=== PATIENT | female | born 1960 | race Caucasian/White ===

== ENCOUNTER 2024-12-13 13:05 | Inpatient (IN) ==
[2024-12-13 14:16] LABS: Hematocrit (blood only) 33.3 % (37.0-47.0); Hemoglobin 10.5 g/dl (12.0-16.0); Immature Granulocytes # (auto) 0.08 K/uL (0.01-0.20); Immature Granulocytes % (auto) 0.4 %; Mean Corpuscular Hemoglobin 25.8 pg (25.0-34.0); Mean Corpuscular Volume 81.8 fL (80.0-100.0); Platelet Count 658 K/uL (130-400); RDW Standard Deviation 44.5 fL (36.4-46.3); Red Blood Count 4.07 M/uL (4.20-5.40); White Blood Count 21.24 K/ul (4.8-10.8)
--- NOTE | 2024-12-13 14:29 | XRay Report ---
XR chest 1V portable CLINICAL HISTORY: Sepsis COMPARISON STUDY: None FINDINGS: There is complete opacification of the left hemithorax with shift of the heart and mediasti num to the left. There is mild compensatory hyper inflation of the right lung. There is a small area of faint patchy opacity lateral right mid lung. No other consolidation or pleural effusion. No pneumo thorax. IMPRESSION: 1. Findings suggestive of prior left pneumonectomy. If the patient does not have history of prior lef t pneumonectomy, follow-up chest CT would be suggested. 2. Possible early pneumonia right midlung. ACT 112: Negative or not required by law. Electronically signed by: Cedric Conway M.D. 12/13/2024 2:28 PM
[2024-12-13] MEDS: SODIUM CHLORIDE 0.9% 1,000 ML IV SCH (14:34)
[2024-12-13 14:51] LABS: Alanine Aminotransferase 13 U/L (7-52); Albumin Level 3.4 gm/dl (3.4-5.0); Alkaline Phosphatase 83 U/L (34-104); Anion Gap 10 (3-11); Bilirubin,Total 0.6 mg/dl (0.2-1.0); Blood Urea Nitrogen 15 mg/dl (6-23); Calcium 14.1 mg/dl (8.6-10.3); Carbon Dioxide 41 mmol/L (21-32); Chloride 81 mmol/L (98-107); Glucose 160 mg/dl (70-99(Fasting)); Magnesium 1.7 mg/dl (1.7-2.4); Potassium 2.1 mmol/L (3.5-5.1); Sodium 132 mmol/L (136-145); Total Protein 8.3 gm/dl (6.0-8.3)
--- NOTE | 2024-12-13 15:53 | CT Scan Report ---
CT SCAN OF THE CHEST WITHOUT IV CONTRAST CLINICAL HISTORY: Sepsis. COMPARISON STUDY: Chest x-ray dated 12/13/2024. TECHNIQUE: CT scan of the thorax was performed from the thoracic inlet to the upper abdomen. Images are reviewed in the axial, sagittal, and coronal planes. IV contrast was not administered for this ex amination as per the referring clinician. A dose lowering technique was utilized adhering to the radha tremaineples of JEREMY. CT DOSE: 653.07 mGy.cm FINDINGS: Thyroid: Imaged portions of the thyroid gland are normal in size and attenuation. Thoracic aorta: The thoracic aorta is normal in caliber and demonstrates standard 3-vessel arch anato my. Heart: The heart is normal in size and without pericardial effusion. Lungs and pleural spaces: Moderate to advanced emphysematous change is noted in the right lung. There is complete atelectasis of the left lung with compensatory hyperinflation of the right lung and left perera shift of the mediastinum. There is a [id number] amount of pleural fluid on the left. No p leural fluid is seen in the right. There is right basilar scarring/atelectasis. The trachea is clear. Debris fills the left mainstem bronchus and the left-sided bronchi which are completely opacified. T he right mainstem bronchus is clear. There are scattered calcified granulomas. Mediastinum: A mildly enlarged prevascular lymph node measures 10 mm in short axis. No additional enl arged mediastinal lymph nodes are clearly seen. Naya: Not well assessed without IV contrast. Axillae: There is no axillary lymphadenopathy. Upper abdomen: Partially visualized upper abdominal viscera is within normal limits. Skeletal structures: The skeletal structures are osteopenic. No lytic or blastic bony lesions are see n. IMPRESSION: 1. Emphysema. 2. There is complete atelectasis of the left lung with compensatory hyperinflation of the right lung and leftward shift of the mediastinum. 3. Tumor or pneumonia within the collapsed left lung would be impossible to exclude. Pulmonology eval uation is advised. 4 Debris/material occludes the left mainstem bronchus and the left-sided airways. This could be relat ed to aspiration. Again, an underlying mass lesion is not excluded. 5. There is a small to moderate amount of pleural fluid on the left. 6. There is a mildly enlarged prevascular lymph node. No additional enlarged mediastinal lymph nodes are clearly seen. 7. The right lung appears clear. 8. Additional findings as above. ACT 112: Negative or not required by law. Electronically signed by: Krishan Temple M.D. 12/13/2024 3:52 PM
--- NOTE | 2024-12-13 16:00 | CT Scan Report ---
ABDOMEN AND PELVIS CT WITHOUT CONTRAST HISTORY: Acute onset abdominal pain with weight loss Cancer, weight loss TECHNIQUE: Multiaxial CT images of the abdomen and pelvis were performed without contrast. A dose lo wering technique was utilized adhering to the principles of ALARA. COMPARISON STUDY: Chest CT of same day FINDINGS: Chest CT dictated separately. Small left pleural effusion. Partially imaged collapse/consol idation of the left lower lobe with left hemithorax volume loss. Emphysema with right basilar subpleu ral fibrosis. No pneumatosis or pneumoperitoneum. The unenhanced spleen, mildly atrophic pancreas and right adrenal gland are unremarkable. Nodular thickening of the left adrenal gland may represent hyp erplasia versus underlying indeterminate adrenal lesion. Unremarkable gallbladder. Liver is within no rmal limits. 4 mm nonobstructing calculus of the interpolar right kidney. Punctate nonobstructing calculus of the inferior pole left kidney. 5 mm calculus within the proximal left ureter just distal to the ureterope lvic junction is noted without significant obstructive uropathy. Urinary bladder wall thickening with partial distention. Unremarkable uterus and adnexa. Atherosclerosis of the aorta without aneurysm. N o lymphadenopathy. No bowel obstruction or bowel wall thickening identified. Colonic diverticulosis without acute divert iculitis. No CT evidence of acute appendicitis. Unremarkable soft tissues. ORIF changes of the left h emipelvis. No destructive bone lesion. IMPRESSION: 1. 5 mm proximal left ureteral calculus is present without significant obstructive uropathy. 2. Nonobstructing bilateral nephrolithiasis. 3. No bowel obstruction or bowel wall thickening. 4. Colonic diverticulosis. 5. Please refer to the same day chest CT for discussion of the intrathoracic findings. ACT 112: Negative or not required by law. The above report was generated using voice recognition software. It may contain grammatical, syntax o r spelling errors. Electronically signed by: Venkata Torres M.D. 12/13/2024 3:58 PM
[2024-12-13] MEDS: diphenhydrAMINE 50 MG/ML VIAL IV STA (16:13)
--- NOTE | 2024-12-13 16:52 | History & Physical Report ---
"<Statement entered by Opal Amaro MD - 12/13/24 20:30> I have reviewed vital signs, chart notes, labs and imaging. I have personally seen, evaluated and examined the patient. I have also discussed the management of the patient with the YAMILKA and I agree with the exam findings documented in the history and physical examination and the documented assessment and plan unless otherwise stated below. She's had some dyspnea lately, no f/c/cough, no hx foreign body aspiration, weight loss Recently nausea and unable to take any thing but liquids, no emesis. Has had some vague L sided abdominal pain. Stools have been hard simran for months, but loose the last few days. My exam notable for absent breath sounds on the left A/P: left lung collapse due to obstruction - not really symptomatic so suspect a slow/chronic process. Consulting pulmonary. symptomatic hypercalcemia Ca 14 - probably some dehydration but quite elevated and suspicious for hypercalcemia of malignancy. takes only 2 TUMS a day. I discussed risks / benefits of IV bisphosphonate with her (osteonecrosis vs improvement or resolution of hypercalcemia symptoms). She would like to proceed with infusion Date of Service December 13, 2024 Assessment & Plan (1) Weakness: (2) Unintentional weight loss: (3) Collapsed lung: (4) Hypercalcemia: (5) Hypokalemia: Plan Promise 64F without significant medical history as she has not seen a provider in ~20 who presents with progressive nausea, weight loss and fevers. Initial workup concerning for lung mass. #Weakness | Nausea | Unintentional Weight Loss - multifactorial, with possible underlying cancer, electrolyte abnormalities,and possible infection CT A/P shows kidney stones (pt asymptomatic) and colonic diverticulosis Blood cultures pending IV Zofran prn nausea Defer PT/OT on admission as patient is not sure she wants to pursue aggressive treatment pending diagnosis # Collapsed Left Lung - Seen on chest CT, with compensatory hyperinflation of the right lung and leftward shift of the mediastinum. Tumor or PNA in the collapsed lung would be impossible to exclude. Debris occultes the left mainstem bronchus Consult Pulmonology - will keep NPO at midnight incase of procedure Signifcant Leukocytosis - Continue Abx - Zosyn Currently on room air and denies shortness of breath at rest but does have MELTON Trend CBC #Hypercalcemia | Hypokalemia Hydrate with NSS + KCL Zometa x 1 40meq PO KCL TID elixir Recheck BMP this evening AM BMP and Mag Dispo: admit to PCU DVT proh: lovenox History of Present Illness Primary Care Provider: NO PCP Patient has been sick for 2 years, at first she thought this was long covid. Had subjective daily fevers - Would take ibuprofen. Not taking her temp at home, but just feels feverish and chills and just wanting to lay under a blanker. Taking ibupfrofen every 6-8 hours for the last two years. Symptoms do improve after taking this. Over the summer starting to loose weight and started getting stomach pains and nausea. Nausea has been getting progressively worse. Poor appetite - has not eaten anything solid in 3 days. Feels like she is gagging on things when she tried to eat. For about a week was eating soft foods/full liquids. Appetite changed abruptly in the last month. She thought she had colon cancer because of the nausea and her and her were focused on making her as comfortable as possible. Has two sons, spoke to her youngest son this morning and he encouraged her to come to the hospital. Hard stools for the last month - minimal stool output in the last few days. Doesnt feel like she has changes in her breathing. Does have worsening shortness of breathing with exertion - has been happening for a few months, but worse in the last few weeks. Former smoker - stopped with the last week because of how sicks she was. 40+ years 1 ppd no ETOH use ED Course: CTX 2g x1 Azithromycin NSS x1 L benadryl 50mg IV x1 Solumedrol 40mg IV x1 Allergies Allergy/AdvReac Type Severity Reaction Status Date / Time iodine Allergy Severe itchy Verified 12/13/24 16:48 palms if peeling shellfish Home Medications Medication Instructions Recorded Confirmed Type ibuprofen 200 mg tablet 400 mg PO Q6H PRN Pain 05/07/20 12/13/24 History Past Med/Surg History Problem List (Updated 12/13/24 @ 17:25 by Jolly Tello PA-C) Hypokalemia Hypercalcemia Collapsed lung Unintentional weight loss Weakness Social History Smoking Status: Current every day smoker Preferred Language: Malian Feels Safe at Home: Yes Review of Systems Review of Systems: All systems reviewed & are unremarkable except as noted in Subjective Physical Exam Physical Exam: General: NAD, VS as above, cachetic, appears older than stated age HEENT: MM dry Resp: normal respiratory effort, no lungs sounds on the left, lungs clear on the right CV: RRR, no murmur, Abd: normal bowel sounds, non tender, soft Extremities: Moves all extremities, no edema Neuro: A&O x3, Skin: intact, no lesions noted Results & Data Results & Data Vital Signs (Past 12 Hours) Vital Signs Temp Pulse Pulse Resp BP BP Pulse Ox 12/13/24 15:50 82 20 131/86 95 12/13/24 14:15 101 H 20 96 12/13/24 14:03 95 H 18 96 12/13/24 14:01 98 H 12/13/24 13:57 110/75 12/13/24 13:31 97.5 F L 110 H 18 84/55 L 93 O2 Del Method 12/13/24 15:50 Room Air 12/13/24 14:15 Room Air 12/13/24 14:03 Room Air 12/13/24 14:01 12/13/24 13:57 12/13/24 13:31 Room Air Laboratory Results cbc and bmp reviewed procal and troponin reviewed Diagnostic Findings chest xray chest CT reviewed CT a/p reviewed PG Care Time/CCT Total # of Minutes Spent Total Time Spent with Patient: Total time spent is greater than 50% in coordination of care (as documented) at patient's floor/unit and/or counseling patient: Coding Level of Care Code 16312 INT INP/OBS CARE 3/75MIN Diagnoses Weakness R53.1 Unintentional weight loss R63.4 Collapsed lung J98.19 Hypercalcemia E83.52 Hypokalemia E87.6"
--- NOTE | 2024-12-13 17:17 | Emergency Department Note ---
Impression & Plan Hypercalcemia, Hypokalemia, Unintentional weight loss, Weakness, Collapsed lung ED Provider Note NAME: KALIE KHAN AGE: 64 SEX: F : 1960 ARRIVES VIA: Walk-In INFORMANT: Patient, ED PROVIDER(S): Pillo Langley MD CHIEF COMPLAINT: Nausea, weight loss HPI: This is a 64-year-old female presenting for nausea, weight loss. Patient states that she feels somewhat sick. She has been intermittent sick for 2 years. She thought she had colon cancer as her other family ember's also had colon cancer. She was never diagnosed with this. She does not see a doctor in many years. She has lost by 20 pounds in the past 3 months. She reports nausea, abdominal pain, intermittent. She reports poor p.o. intake and weakness. Denies any shortness of breath, chest pain. No vomiting. No fevers or chills at this time. ROS: See above HPI for pertinent positives & negatives. A total of 10 systems reviewed and were otherwise negative. PAST MEDICAL HISTORY: See Below PAST SURGICAL HISTORY: See Below FAMILY HISTORY: See Below SOCIAL HISTORY: See Below HOME MEDICATIONS: See Below ALLERGIES: See Below VITALS: See Below PHYSICAL EXAMINATION: General: Cachectic Head: Normocephalic and atraumatic Eyes: Normal inspection, extraocular muscles intact Ear, nose, throat: Normal external exam Neck: Normal range of motion Respiratory: lungs clear to auscultation bilaterally Cardiovascular: Regular rate/rhythm, no murmur GI: soft, nontender, no guarding or rebound Extremities: nontender, moves all extremities Neuro: The patient awake and alert, appropriately conversive, no focal deficits, symmetric faces Skin: Warm, dry, and intact MEDICAL DECISION MAKING: This is a 64-year-old male present for nausea, weight loss. Will do screening blood work, chest x-ray, EKG she is tachycardic and mildly hypotensive. -I was called to bedside as patient was tachycardic and hypotensive. Will start fluid resuscitation, 1 L. Patient did have appropriate response with increasing blood pressure to the 120s and 130s systolic tachycardia downtrending from 110s -> 80s - ECG independently interpreted by me with normal sinus rhythm, rate of 87, normal axis, normal OR, normal QRS, normal QTc, no ST segment elevations consistent with STEMI criteria - Blood work is nothing abnormal with a leukocytosis of 12.24. anemia to 10.5. Potassium is critically low at 2.1. Carbon oxide 41 with calcium of 14.1. Will give fluid cessation at this time. - Chest x-ray shows complete whiteout of the left lung upon my independent or potation -Will proceed with CT imaging of the chest, abdomen pelvis for unclear findings and abnormal lung x-ray -Complete atelectasis of the left lung is noted with Commissary hyperinflation of the right lung. Impossible to exclude tumor, pneumonia or aspiration - Small to moderate amount of pleural effusion on the left -Abdomen/pelvis reveals 5 mm proximal left ureteral calculus -Will get the patient for significant electrolyte abnormalities, leukocytosis, left lung atelectasis and pulmonary consultation requirement Differential diagnosis: Sepsis, pneumonia, colon cancer, appendicitis, cholecystitis Independent History obtained from: Diagnostics interpreted by me: ECG: See above Cardiac Monitoring: An order was placed for continuous cardiac monitoring. The monitor shows a rate of 82 with sinus rhythm. Critical Care Note: I have personally spent 42 minutes of critical care time in the direct management of this patient. This includes bedside care, interpretation of diagnostic studies, and testing, discussion with consultants, patient, and family members, and other required patient management activities. This 42 minutes is in excess of all separately billable procedures. Past Med/Surg History Problem List (Updated 12/13/24 @ 18:41 by Pillo Langley MD) Hypokalemia (Acute) Hypercalcemia (Acute) Collapsed lung (Acute) Unintentional weight loss (Acute) Weakness (Acute) Social History Smoking Status: Current every day smoker Preferred Language: Irish Feels Safe at Home: Yes Allergies Allergies Allergy/AdvReac Type Severity Reaction Status Date / Time iodine Allergy Severe itchy Verified 12/13/24 16:48 palms if peeling shellfish Home Meds Home Medications Medication Instructions Recorded Confirmed ibuprofen 200 mg tablet 400 mg PO Q6H PRN Pain 05/07/20 12/13/24 Results & Data (ED) Vital Signs Vital Signs - 24 hr 12/13/24 13:31 12/13/24 13:57 12/13/24 14:01 Temperature 36.4 C L Temperature Source Oral Pulse Rate 110 H 98 H Pulse Rate [Left Apical] Pulse Rate from SpO2 Sensor Pulse Rhythm [Left Apical] Pulse Strength [Left Apical] Respiratory Rate 18 Respiratory Effort / Characteristics Non-Labored Spontaneous Respiratory Depth Normal Respiratory Pattern Regular Blood Pressure 84/55 L 110/75 Blood Pressure [Right Arm] Blood Pressure Mean 64 82 Blood Pressure Mean [Right Arm] Blood Pressure Position [Right Arm] Pulse Oximetry 93 Oxygen Delivery Method Room Air Sepsis Recent Fever Within 48 Hours Yes Sepsis New/Unexplained Change in Mental Status N/A Sepsis Action Taken by Nursing Physician Notified 12/13/24 14:03 12/13/24 14:15 12/13/24 14:33 Temperature Temperature Source Pulse Rate 95 H 101 H 83 Pulse Rate [Left Apical] Pulse Rate from SpO2 Sensor 83 Pulse Rhythm [Left Apical] Pulse Strength [Left Apical] Respiratory Rate 18 20 16 Respiratory Effort / Characteristics Respiratory Depth Respiratory Pattern Blood Pressure Blood Pressure [Right Arm] Blood Pressure Mean Blood Pressure Mean [Right Arm] Blood Pressure Position [Right Arm] Pulse Oximetry 96 96 91 Oxygen Delivery Method Room Air Room Air Sepsis Recent Fever Within 48 Hours Sepsis New/Unexplained Change in Mental Status Sepsis Action Taken by Nursing 12/13/24 14:54 12/13/24 15:00 12/13/24 15:42 Temperature Temperature Source Pulse Rate 74 72 88 Pulse Rate [Left Apical] Pulse Rate from SpO2 Sensor 75 72 Pulse Rhythm [Left Apical] Pulse Strength [Left Apical] Respiratory Rate 21 20 22 Respiratory Effort / Characteristics Respiratory Depth Respiratory Pattern Blood Pressure Blood Pressure [Right Arm] Blood Pressure Mean Blood Pressure Mean [Right Arm] Blood Pressure Position [Right Arm] Pulse Oximetry 94 94 Oxygen Delivery Method Sepsis Recent Fever Within 48 Hours Sepsis New/Unexplained Change in Mental Status Sepsis Action Taken by Nursing 12/13/24 15:49 12/13/24 15:50 12/13/24 17:12 Temperature Temperature Source Pulse Rate 85 Pulse Rate [Left Apical] 82 Pulse Rate from SpO2 Sensor Pulse Rhythm [Left Apical] Regular Pulse Strength [Left Apical] Normal Respiratory Rate 20 20 Respiratory Effort / Characteristics Non-Labored Spontaneous Respiratory Depth Normal Respiratory Pattern Regular Blood Pressure 131/86 Blood Pressure [Right Arm] 131/86 Blood Pressure Mean 112 Blood Pressure Mean [Right Arm] 101 Blood Pressure Position [Right Arm] Lying Pulse Oximetry 95 Oxygen Delivery Method Room Air Sepsis Recent Fever Within 48 Hours Sepsis New/Unexplained Change in Mental Status Sepsis Action Taken by Nursing 12/13/24 17:18 12/13/24 17:36 12/13/24 17:45 Temperature Temperature Source Pulse Rate 88 81 81 Pulse Rate [Left Apical] Pulse Rate from SpO2 Sensor Pulse Rhythm [Left Apical] Pulse Strength [Left Apical] Respiratory Rate 17 19 23 Respiratory Effort / Characteristics Respiratory Depth Respiratory Pattern Blood Pressure Blood Pressure [Right Arm] Blood Pressure Mean Blood Pressure Mean [Right Arm] Blood Pressure Position [Right Arm] Pulse Oximetry Oxygen Delivery Method Sepsis Recent Fever Within 48 Hours Sepsis New/Unexplained Change in Mental Status Sepsis Action Taken by Nursing 12/13/24 17:51 12/13/24 18:00 12/13/24 18:00 Temperature Temperature Source Pulse Rate 81 Pulse Rate [Left Apical] Pulse Rate from SpO2 Sensor Pulse Rhythm [Left Apical] Pulse Strength [Left Apical] Respiratory Rate 17 Respiratory Effort / Characteristics Respiratory Depth Respiratory Pattern Blood Pressure 133/77 133/77 Blood Pressure [Right Arm] Blood Pressure Mean 106 106 Blood Pressure Mean [Right Arm] Blood Pressure Position [Right Arm] Pulse Oximetry Oxygen Delivery Method Sepsis Recent Fever Within 48 Hours Sepsis New/Unexplained Change in Mental Status Sepsis Action Taken by Nursing 12/13/24 18:03 12/13/24 18:03 12/13/24 18:15 Temperature Temperature Source Pulse Rate 79 81 81 Pulse Rate [Left Apical] Pulse Rate from SpO2 Sensor Pulse Rhythm [Left Apical] Pulse Strength [Left Apical] Respiratory Rate 17 14 Respiratory Effort / Characteristics Respiratory Depth Respiratory Pattern Blood Pressure Blood Pressure [Right Arm] Blood Pressure Mean Blood Pressure Mean [Right Arm] Blood Pressure Position [Right Arm] Pulse Oximetry 95 Oxygen Delivery Method Sepsis Recent Fever Within 48 Hours Sepsis New/Unexplained Change in Mental Status Sepsis Action Taken by Nursing Laboratory Data 12/13/24 14:00 12/13/24 14:00 Lab Results 12/13/24 12/13/24 12/13/24 Range/Units 14:00 16:06 17:09 WBC 21.24 H (4.8-10.8) K/ul RBC 4.07 L (4.20-5.40) M/uL Hgb 10.5 L (12.0-16.0) g/dl Hct 33.3 L (37.0-47.0) % MCV 81.8 (80.0-100.0) fL MCH 25.8 (25.0-34.0) pg MCHC 31.5 L (32.0-36.0) g/dL RDW Std Deviation 44.5 (36.4-46.3) fL RDW Coeff of Rosey 14.9 H (11.5-14.5) % Plt Count 658 H (130-400) K/uL MPV 8.8 L (9.4-12.4) fL Immature Gran % (Auto) 0.4 % Neut % (Auto) 83.5 % Lymph % (Auto) 9.8 % Placer % (Auto) 5.7 % Eos % (Auto) 0.4 % Baso % (Auto) 0.2 % Neut # (Auto) 17.72 H (1.40-6.50) K/uL Lymph # (Auto) 2.09 (1.20-3.40) K/uL Placer # (Auto) 1.21 H (0.11-0.59) K/uL Eos # (Auto) 0.09 (0.00-0.50) K/uL Baso # (Auto) 0.05 (0.00-0.20) K/uL Immature Gran # (Auto) 0.08 (0.01-0.20) K/uL Sodium 132 L (136-145) mmol/L Potassium 2.1 L* (3.5-5.1) mmol/L Chloride 81 L (98-107) mmol/L Carbon Dioxide 41 H* (21-32) mmol/L Anion Gap 10 (3-11) BUN 15 (6-23) mg/dl Creatinine 0.97 (0.6-1.2) mg/dl Est Cr Clr Drug Dosing Not Reportable eGFR 65.66 BUN/Creatinine Ratio 15.5 (10-20) Glucose 160 H (70-99(Fasting)) mg/dl Lactate 2.5 H* 1.4 (0.4-2.0) mmol/L Calcium 14.1 H* (8.6-10.3) mg/dl Magnesium 1.7 (1.7-2.4) mg/dl Total Bilirubin 0.6 (0.2-1.0) mg/dl Direct Bilirubin 0.2 (0-0.2) mg/dl AST 17 (13-39) U/L ALT 13 (7-52) U/L Alkaline Phosphatase 83 (34-104) U/L Troponin I High Sens 18.9 H (0-14) pg/ml Total Protein 8.3 (6.0-8.3) gm/dl Albumin 3.4 (3.4-5.0) gm/dl Procalcitonin 0.16 (0-0.5) ng/ml Urine Color Yellow Urine Appearance Clear (Clear) Urine pH 7.0 (4.5-7.5) Ur Specific Ama 1.007 (1.000-1.030) Urine Protein Negative (Negative) Urine Glucose (UA) Negative (Negative) Urine Ketones Negative (Negative) Urine Blood Negative (Negative) Urine Nitrite Negative (Negative) Urine Bilirubin Negative (Negative) Urine Urobilinogen Negative (Negative) Ur Leukocyte Esterase Trace H (Negative) Urine WBC (Auto) 6-10 H (0-5) /hpf Urine RBC (Auto) 0-2 (0-2) /hpf U Hyaline Cast (Auto) 3-5 H (0-2) /lpf U Epithel Cells (Auto) 3-5 H (0-2) /hpf Urine Bacteria (Auto) None Seen (None Seen) Urine Comment Administered Medications Azithromycin (Zithromax) 500 mg in 255 mls @ 127.5 mls/hr IV NOW ONE Stop: 12/13/24 18:41 Last Admin: 12/13/24 17:35 Dose: 127.5 mls/hr Documented By: SINTIA Potassium Chloride 40 meq/ (Sodium Chloride) 1,020 mls @ 100 mls/hr IV .[id number] JOAO Stop: 12/16/24 17:14 Last Admin: 12/13/24 18:02 Dose: 100 mls/hr Documented By: SNITIA Discontinued Medications Diphenhydramine HCl (Diphenhydramine 50 Mg/Ml Vial) 50 mg IV NOW STA Stop: 12/13/24 15:22 Last Admin: 12/13/24 16:13 Dose: Not Given Documented By: SINTIA Sodium Chloride (Nss) 1,000 mls @ 999 mls/hr IV .Q1H1M JOAO Stop: 12/13/24 15:15 Last Infusion: 12/13/24 15:26 Dose: Infused Documented By: Admin: 12/13/24 14:34 Dose: 999 mls/hr Documented By: SINTIA Ceftriaxone Sodium (Rocephin) 2,000 mg in 50 mls @ 100 mls/hr IV NOW STA Stop: 12/13/24 17:11 Last Infusion: 12/13/24 18:03 Dose: Infused Documented By: [facility] [place] Admin: 12/13/24 17:34 Dose: 100 mls/hr Documented By: [facility] [place] Zoledronic Acid 4 mg/ Sodium (Chloride) 105 mls @ 410 mls/hr IV ONE ONE; Protocol Stop: 12/13/24 17:29 Last Infusion: 12/13/24 18:22 Dose: Infused Documented By: [facility] [place] Admin: 12/13/24 18:02 Dose: 410 mls/hr Documented By: [facility] [place] Sodium Chloride (Nss) 1,000 mls @ 999 mls/hr IV .Q1H1M ONE Stop: 12/13/24 18:14 Last Infusion: 12/13/24 18:22 Dose: Infused Documented By: [facility] [place] Admin: 12/13/24 17:34 Dose: 999 mls/hr Documented By: [facility] [place] Methylprednisolone (Methylprednisolone 125 Mg/2 Ml Vial) 40 mg IV NOW STA Stop: 12/13/24 15:22 Last Admin: 12/13/24 16:13 Dose: Not Given Documented By: [facility] [place] Imaging Data Radiologist's Impression: Chest X-Ray 12/13/24 14:02 XR chest 1V portable CLINICAL HISTORY: Sepsis COMPARISON STUDY: None FINDINGS: There is complete opacification of the left hemithorax with shift of the heart and mediastinum to the left. There is mild compensatory hyper inflation of the right lung. There is a small area of faint patchy opacity lateral right mid lung. No other consolidation or pleural effusion. No pneumothorax. IMPRESSION: 1. Findings suggestive of prior left pneumonectomy. If the patient does not have history of prior left pneumonectomy, follow-up chest CT would be suggested. 2. Possible early pneumonia right midlung. ACT 112: Negative or not required by law. Electronically signed by: Cedric Conway M.D. 12/13/2024 2:28 PM Abdomen/Pelvis CT 12/13/24 15:[address] WITHOUT CONTRAST HISTORY: Acute onset abdominal pain with weight loss Cancer, weight loss TECHNIQUE: Multiaxial CT images of the abdomen and pelvis were performed without contrast. A dose lowering technique was utilized adhering to the principles of ALARA. COMPARISON STUDY: Chest CT of same day FINDINGS: Chest CT dictated separately. Small left pleural effusion. Partially imaged collapse/consolidation of the left lower lobe with left hemithorax volume loss. Emphysema with right basilar subpleural fibrosis. No pneumatosis or pneumoperitoneum. The unenhanced spleen, mildly atrophic pancreas and right adrenal gland are unremarkable. Nodular thickening of the left adrenal gland may represent hyperplasia versus underlying indeterminate adrenal lesion. Unremarkable gallbladder. Liver is within normal limits. 4 mm nonobstructing calculus of the interpolar right kidney. Punctate nonobstructing calculus of the inferior pole left kidney. 5 mm calculus within the proximal left ureter just distal to the ureteropelvic junction is noted without significant obstructive uropathy. Urinary bladder wall thickening with partial distention. Unremarkable uterus and adnexa. Atherosclerosis of the aorta without aneurysm. No lymphadenopathy. No bowel obstruction or bowel wall thickening identified. Colonic diverticulosis without acute diverticulitis. No CT evidence of acute appendicitis. Unremarkable soft tissues. ORIF changes of the left hemipelvis. No destructive bone lesion. IMPRESSION: 1. 5 mm proximal left ureteral calculus is present without significant obstructive uropathy. 2. Nonobstructing bilateral nephrolithiasis. 3. No bowel obstruction or bowel wall thickening. 4. Colonic diverticulosis. 5. Please refer to the same day chest CT for discussion of the intrathoracic findings. ACT 112: Negative or not required by law. The above report was generated using voice recognition software. It may contain grammatical, syntax or spelling errors. Electronically signed by: Venkata Torres M.D. 12/13/2024 3:[address] 12/13/24 15:22 CT SCAN OF THE CHEST WITHOUT IV CONTRAST CLINICAL HISTORY: Sepsis. COMPARISON STUDY: Chest x-ray dated 12/13/2024. TECHNIQUE: CT scan of the thorax was performed from the thoracic inlet to the upper abdomen. Images are reviewed in the axial, sagittal, and coronal planes. IV contrast was not administered for this examination as per the referring clinician. A dose lowering technique was utilized adhering to the principles of ALARA. CT DOSE: 653.07 mGy.cm FINDINGS: Thyroid: Imaged portions of the thyroid gland are normal in size and attenuation. Thoracic aorta: The thoracic aorta is normal in caliber and demonstrates standard 3-vessel arch anatomy. Heart: The heart is normal in size and without pericardial effusion. Lungs and pleural spaces: Moderate to advanced emphysematous change is noted in the right lung. There is complete atelectasis of the left lung with compensatory hyperinflation of the right lung and leftward shift of the mediastinum. There is a [id number] amount of pleural fluid on the left. No pleural fluid is seen in the right. There is right basilar scarring/atelectasis. The trachea is clear. Debris fills the left mainstem bronchus and the left-sided bronchi which are completely opacified. The right mainstem bronchus is clear. There are scattered calcified granulomas. Mediastinum: A mildly enlarged prevascular lymph node measures 10 mm in short axis. No additional enlarged mediastinal lymph nodes are clearly seen. Naya: Not well assessed without IV contrast. Axillae: There is no axillary lymphadenopathy. Upper abdomen: Partially visualized upper abdominal viscera is within normal limits. Skeletal structures: The skeletal structures are osteopenic. No lytic or blastic bony lesions are seen. IMPRESSION: 1. Emphysema. 2. There is complete atelectasis of the left lung with compensatory hyperinflation of the right lung and leftward shift of the mediastinum. 3. Tumor or pneumonia within the collapsed left lung would be impossible to exclude. Pulmonology evaluation is advised. 4 Debris/material occludes the left mainstem bronchus and the left-sided airways. This could be related to aspiration. Again, an underlying mass lesion is not excluded. 5. There is a small to moderate amount of pleural fluid on the left. 6. There is a mildly enlarged prevascular lymph node. No additional enlarged mediastinal lymph nodes are clearly seen. 7. The right lung appears clear. 8. Additional findings as above. ACT 112: Negative or not required by law. Electronically signed by: Krishan Temple M.D. 12/13/2024 3:52 PM Discharge Plan Visit Data Chief Complaint: Nausea Stated Complaint: NAUSEA, WEAKNESS, ABD PAIN ED Provider: Pillo Langley Discharge Problem: Hypercalcemia, Hypokalemia, Unintentional weight loss, Weakness, Collapsed lung Patient Disposition: Admitted As Inpatient Condition: Serious Forms Stand Alone Forms: My [employer] Prescriptions Prescriptions: No Action ibuprofen 200 mg Tablet 400 mg PO Q6H PRN (Reason: Pain) Referrals Referrals: PCP,NO [Primary Care Provider] -
[2024-12-13 17:27] LABS: Appearance Urine Clear (Clear); Bacteria Urine Automated None Seen (None Seen); Glucose Urine UA Negative (Negative); RBC Urine Automated 0-2 /hpf (0-2)
[2024-12-13] MEDS: cefTRIAXone SODIUM 2,000 MG/50 ML BAG IV STA (17:34)
[2024-12-13] MEDS: SODIUM CHLORIDE 0.9% 1,000 ML IV ONE (17:34)
[2024-12-13] MEDS: AZITHROMYCIN 500 MG/255 ML BAG IV ONE (17:35)
[2024-12-13] MEDS: POTASSIUM CHLORIDE 40 MEQ in SODIUM CHLORIDE 0.9% 1,000 ML IV SCH (18:02)
[2024-12-13] MEDS: ZOLEDRONIC ACID 4 MG in SODIUM CHLOR 0.9% MINI-B 100 ML IV ONE (18:02)
[2024-12-13 21:40] LABS: Anion Gap 6.0 (3-11); Blood Urea Nitrogen 12.0 mg/dl (6-23); Calcium 12.1 mg/dl (8.6-10.3); Carbon Dioxide 39.0 mmol/L (21-32); Chloride 91.0 mmol/L (98-107); Creatinine Clr Calc Pharmacy 58.0 ml/min; Glucose 94.0 mg/dl (70-99(Fasting)); Potassium 2.2 mmol/L (3.5-5.1); Sodium 136.0 mmol/L (136-145)
[2024-12-13] MEDS ORDERED: ONDANSETRON INJ 2 MG/ML 2 ML VIAL IV PRN (22:50)
[2024-12-13] MEDS: POTASSIUM CHLORIDE 20 MEQ/15 ML UDC PO SCH (23:48)
[2024-12-13] MEDS: PIPERACILLIN/TAZOBACTAM 4.5 GM/100 ML BAG IV STA (23:52)
[2024-12-14] MEDS: ACETAMINOPHEN 1,000 MG/100 ML VIAL IV STA (00:48)
[2024-12-14] MEDS: PIPERACILLIN/TAZOBACTAM 4.5 GM/100 ML BAG IV SCH (05:41)
[2024-12-14] MEDS ORDERED: Nursing to Pharmacy Communication SCH ×2 (06:00→21:00)
[2024-12-14 06:25] LABS: Hematocrit (blood only) 25.3 % (37.0-47.0); Hemoglobin 8.4 g/dl (12.0-16.0); Mean Corpuscular Hemoglobin 27.0 pg (25.0-34.0); Mean Corpuscular Volume 81.4 fL (80.0-100.0); Platelet Count 480 K/uL (130-400); RDW Standard Deviation 44.5 fL (36.4-46.3); Red Blood Count 3.11 M/uL (4.20-5.40); White Blood Count 23.58 K/ul (4.8-10.8)
[2024-12-14 06:53] LABS: Basophilic Stippling 1+; Hypochromasia Present; Immature Granulocytes # (auto) 0.19 K/uL (0.01-0.20); Immature Granulocytes % (auto) 0.8 %; Polychromasia 1+
[2024-12-14 07:09] LABS: Anion Gap 5.0 (3-11); Blood Urea Nitrogen 12.0 mg/dl (6-23); Calcium 11.5 mg/dl (8.6-10.3); Carbon Dioxide 38.0 mmol/L (21-32); Chloride 94.0 mmol/L (98-107); Creatinine Clr Calc Pharmacy 48.9 ml/min; Glucose 78.0 mg/dl (70-99(Fasting)); Magnesium 1.2 mg/dl (1.7-2.4); Potassium 2.0 mmol/L (3.5-5.1); Sodium 137.0 mmol/L (136-145)
[2024-12-14] MEDS: POTASSIUM CHLORIDE / WTR 10 MEQ/100 ML PLCT IV SCH ×2 (08:13→12:14)
[2024-12-14] MEDS: MAGNESIUM SULFATE / D5W 1 GM/100 ML BAG IV SCH (08:13)
[2024-12-14] MEDS: ENOXAPARIN INJ 40 MG/0.4 ML SYR SQ SCH (08:31)
[2024-12-14] MEDS: MAGNESIUM OXIDE 400 MG TAB PO SCH (08:54)
[2024-12-14 11:53] VITALS: RESP 18
[2024-12-14 14:58] LABS: Anion Gap 3.0 (3-11); Blood Urea Nitrogen 13.0 mg/dl (6-23); Calcium 10.8 mg/dl (8.6-10.3); Carbon Dioxide 35.0 mmol/L (21-32); Chloride 98.0 mmol/L (98-107); Creatinine Clr Calc Pharmacy 46.9 ml/min; Glucose 101.0 mg/dl (70-99(Fasting)); Magnesium 1.8 mg/dl (1.7-2.4); Potassium 3.4 mmol/L (3.5-5.1); Sodium 136.0 mmol/L (136-145)
--- NOTE | 2024-12-14 15:28 | Hospitalist Progress Note ---
"Date of Service December 14, 2024 Assessment & Plan (1) Weakness: (2) Unintentional weight loss: (3) Collapsed lung: (4) Hypercalcemia: (5) Hypokalemia: Plan Promise 64F without significant medical history as she has not seen a provider in ~20 who presents with progressive nausea, weight loss and fevers. Initial workup concerning for lung mass. #Weakness | Nausea | Unintentional Weight Loss - multifactorial, with possible underlying cancer, electrolyte abnormalities,and possible infection CT A/P shows kidney stones (pt asymptomatic) and colonic diverticulosis Blood cultures no growth at 24 hours IV Zofran prn nausea Defer PT/OT on admission as patient is not sure she wants to pursue aggressive treatment pending diagnosis # Collapsed Left Lung - Seen on chest CT, with compensatory hyperinflation of the right lung and leftward shift of the mediastinum. Tumor or PNA in the collapsed lung would be impossible to exclude. Debris occultes the left mainstem bronchus Consult Pulmonology - recommend transfer to [place] for lesion debulking. I spoke with [place] interventional glaze sprayer, Dr. Sevilla. did not think Promise would be a candidate for debulking because the collapsed lung is necrotic and is likely been down for greater 2 months.. Could offer a more extensive biopsy procedure to try to protect the right main bronchus guess, however the purpose of this would be to get a tissue diagnosis for further immuno/chemo/radiation therapy. Discussion with Jessica and her family and she would not want to pursue these aggressive measures and would like to return home on hospice. will continue Zosyn while inpatient supplemental oxygen as needed #Hypercalcemia | Hypokalemia Hydrate with NSS + KCL Zometa x 1 potassium remained low this morning, given KCl 10 mill equivalents x 6 and 2 g of IV mag. On recheck potassium has improved to 3.4 and mag is 1.8. Will plan to continue to hydrate with the NSS plus KCl will recheck her BMP and mag in the morning replace these electrolytes as needed and then discharge home with hospice Dispo: continued inpatient stay on PCU, telemetry monitoring required for the amount of IV potassium the patient is receiving, recheck a.m. labs in the morning, replete electrolytes and discharge home with hospice tomorrow DVT proh: lovenox Admission and Anticipated Discharge Date Admission Date: December 13, 2024 Subjective patient seen earlier this morning, present at bedside at this time. They have been seen by the glaze sprayer who recommended transfer to [place]. Physically patient is feeling quite tired as she did not sleep well overnight. She has had no further vomiting. Reports being very thirsty revisited this afternoon after I spoke with her she. Patient states she would not want chemotherapy or immunotherapy and therefore we do not need to biopsy plan will be to go home with hospice plan for repeat labs at 3 PM and then reevaluate if she would go home today versus tomorrow I revisited the patient again later this afternoon she would like to stay overnight with IV fluids and then we will replace her electrolytes based on her a.m. labs and send her home tomorrow with hospice. Reports not being hungry for food but has consumed a decent amount of liquid since no longer being n.p.o. Review of Systems Review of Systems: All systems reviewed & are unremarkable except as noted in Subjective Physical Exam Physical Exam: General: NAD, VS as above, cachetic, appears older than stated age HEENT: MM dry Resp: normal respiratory effort, no lungs sounds on the left, lungs clear on the right CV: RRR, no murmur, Abd: normal bowel sounds, non tender, soft Extremities: Moves all extremities, no edema Neuro: A&O x3, Skin: intact, no lesions noted Results & Data Results & Data Vital Signs (Past 12 Hours) Vital Signs Temp Pulse Pulse Resp BP Pulse Ox O2 Del Method 12/14/24 15:22 99.7 F H 93 H 18 109/72 91 Room Air 12/14/24 12:10 100/64 12/14/24 11:52 99.0 F 79 18 87/56 L 100 Room Air 12/14/24 08:00 Nasal Cannula 12/14/24 08:00 84 12/14/24 07:30 98.6 F 79 17 110/63 100 Nasal Cannula O2 Flow Rate 12/14/24 15:22 12/14/24 12:10 12/14/24 11:52 12/14/24 08:00 2 12/14/24 08:00 12/14/24 07:30 3.0 Laboratory Results CBC, chemistry, magnesium reviewed PG Care Time/CCT Total # of Minutes Spent Total Time Spent with Patient: Total time spent is greater than 50% in coordination of care (as documented) at patient's floor/unit and/or counseling patient: Coding Level of Care Code 05475 SUB INP/OBS CARE 350MIN Diagnoses Weakness R53.1 Unintentional weight loss R63.4 Collapsed lung J98.19 Hypercalcemia E83.52 Hypokalemia E87.6"
--- NOTE | 2024-12-14 15:32 | Advance Care Plan Prog Note ---
Advanced Care Planning Note Date of Discussion December 14, 2024 ACP Discussion Diagnoses requiring ACP discussion: [ left main stem bronchus masspresumed lung cancer, weight loss, hypokalemia] A [id number] discussion with the [ Promise, her , her son and his ] regarding the patient's advanced care planning took place during this hospitalization on the above date. The discussion included the explanation and discussion of advance directives and associated forms/documents, as well as the patient's current code status. We also discussed at length the patient's medical conditions (both acute and chronic), general prognosis, treatment options, and goals of care. The following summarizes the discussion: this morning Promise and her were hopeful for curative treatment for this lesion based on the discussion with pulmonology. I relayed my discussion with the [facility] [employer] [employer] attendant who said that debulking the mass was not an option because the lung has become necrotic after has been down for likely greater than 2 months. We discussed how currently Promise is having very minimal respiratory symptoms from the mass and more of her symptoms were related to her nausea and poor intake which were likely related to the hypercalcemia. Promise has been pretty Voelkel since admission about not wanting to pursue chemotherapy and not wanting to spend the remaining time that she has in the hospital. We discussed the procedure that her she did have to offer that would be a more extensive biopsy that would allow for tissue diagnosis with intent for chemotherapy and radiation and possibly immunotherapy Promise confirms that she would not want any of these aggressive measures and in agreement with her family have decided to not pursue further biopsy. or workup of the mass in her lungs. We discussed returning home with hospice, this is most aligned with her goals. We discussed that she could go home with hospice to day versus tomorrow giving us another day to try to optimize her electrolytes and hydration status. After hearing about the values of her repeat labs she would like to stay for 1 more night continue to get IV fluids and plan to go home tomorrow with hospice services. Patient remains a DNR/DNI. No further escalation of care at this time will continue IV hydration and recheck her electrolytes in the morning. Advance Care Planning/Goals of Care Continue current evaluation & management of any acute/chronic issues, Will continue to support the patient/family and Will continue to discuss both short- and long-term goals of care Status Resuscitation Status DNR/DNI No Resuscitation Total Time I spent a total of [26] minutes was spent on this discussion, including counseling, answering questions, and completing, if any, pertinent advanced care planning forms/documents.
[2024-12-14] MEDS: ACETAMINOPHEN 325 MG TAB PO PRN (19:36)
--- NOTE | 2024-12-14 22:07 | Pulmonary Consultation ---
<Statement entered by Mor Chaudhari MD - 12/15/24 14:18> I, Mor Chaudhari MD, supervised and reviewed the physical exam, assessment, plan, and management as documented by the Advanced Care Provider for this patient encounter. I discussed the case with them, confirmed the findings, and I concur with the proposed plan of care. I was available for consultation throughout the encounter and provided guidance as needed. Date of Consultation December 14, 2024 Assessment & Plan (1) Collapsed lung: (2) Lung cancer: (3) Unintentional weight loss: Plan Promise Currie is a 64-year-old female with no significant past medical history; who presented to [facility] ED on 12/13/2024 with progressive nausea, weight loss and fevers. Patient has had nausea and weight loss for the past 2 years. Unfortunately, chest x-ray showed complete opacification of left lung with mediastinal shift. CT chest showed a left bronchus mass with atelectasis/collapse of the left lung concerning for malignant process. Mass in left bronchus likely malignancy; left lung atelectasis/collapse -CXR 12/14/23 showed -CT chest 12/13/24 showed -Given patient's smoking history there is high likelihood of malignancy -Bronchoscopic biopsy could provide diagnosis not be therapeutic. Patient should be transferred to tertiary facility with IP and CT surgery. -Hospitalist discussed care with [facility] who felt that debulking was not an option as the left lung is necrotic. Did offer more invasive biopsy but patient does not want to pursue treatment. Patient planning on moving to hospice/palliative care. Smoker; tobacco use -Smoking cessation encouraged. Thank you for allowing us to participate in this patient's care. Please feel free to reach out with questions or concern. 40 minutes is the time spent reviewing the chart, obtaining hostory, performing the physical exam, coordinating with the care team. History of Present Illness Reason for Consultation: Left bronchial mass causing left lung atelectasis/collapse Attending Physician: Jesús Beckwith MD History of Present Illness Promise Currie is a 64-year-old female with no significant past medical history; who presented to [facility] ED on 12/13/2024 with progressive nausea, weight loss and fevers. Patient has had nausea and weight loss for the past 2 years. Unfortunately. Chest x-ray showed complete opacification of left lung with mediastinal shift. CT chest showed a left bronchus mass with atelectasis/collapse of the left lung concerning for malignant process. Patient admitted to the hospitalist service with pulmonary consulted for mass in left bronchus with collapse of the left lung. Patient is a former smoker having quite 1 week ago due to feeling sick. She has a 40 pack year history. Allergies Allergy/AdvReac Type Severity Reaction Status Date / Time iodine Allergy Severe itchy Verified 12/13/24 16:48 palms if peeling shellfish Home Medications Medication Instructions Recorded Confirmed Type ibuprofen 200 mg tablet 400 mg PO Q6H PRN Pain 05/07/20 12/13/24 History lorazepam 2 mg/mL oral concentrate 0.5 mg (0.25 mL) PO Q4H PRN 12/14/24 Rx anxiety or agitation #30 mL morphine 20 mg/5 mL (4 mg/mL) oral 5 mg (1.25 mL) PO Q4H PRN pain 12/14/24 Rx solution #100 mL olanzapine 5 mg disintegrating 5 mg PO DAILY PRN nausea #7 tabs 12/14/24 Rx tablet ondansetron 4 mg disintegrating 4 mg PO Q6H PRN nausea and 12/14/24 Rx tablet vomiting #14 tabs Patient History Social History Smoking Status: Former smoker Do You Dip or Chew Tobacco: No; Hx Alcohol Use: No Hx Substance Use: No Preferred Language: Montserratian Communication Ability: Effective Associate Account Manager Required: No Beliefs That Will Affect Care: None Current Living Situation: Spouse Current Living Situation Comment: Other Information That Helps Us Care for You: No Feels Safe at Home: Yes Safety Concerns: Feels Safe At This Time Assistive Devices: Cane Review of Systems 2 Review of Systems: All systems reviewed & are unremarkable except as noted in HPI & below Physical Exam 2 Physical Exam: VITALS: Reviewed. WEIGHT/BMI reviewed. GEN: Stated age appearing, well-developed, NAD. PSYCH: Good Judgment. AOx3. Normal memory, mood, and affect. HEENT -Head: NC/AT; -Eyes: PERRL, EOMI. No discharge or redn ess; -Ears: External ears are normal. -Nose: Normal nares. NECK: Supple, with no masses. CV: RRR, no m/r/g. LUNGS: Clear right upper and lower lobes. Diminished left lung sounds. ABD: Soft, NT/ND, NBS, no masses or organomegaly. : N/A SKIN: Warm, well perfused. No skin rashes or abnormal lesions. MSK: No deformities, Normal gait. EXT: No clubbing, cyanosis, or edema. NEURO: Normal muscle strength and tone. No focal deficits. Results & Data Results & Data Vital Signs (Past 12 Hours) Vital Signs Temp Pulse Pulse Pulse Resp BP Pulse Ox 12/14/24 22:02 37.4 C 87 18 112/66 99 12/14/24 21:29 12/14/24 21:05 37.6 C H 12/14/24 19:46 37.9 C H 94 H 18 123/75 93 12/14/24 17:49 80 12/14/24 15:22 37.6 C H 93 H 18 109/72 91 12/14/24 12:10 100/64 12/14/24 11:52 37.2 C 79 18 87/56 L 100 O2 Del Method O2 Flow Rate 12/14/24 22:02 Nasal Cannula 2 12/14/24 21:29 Nasal Cannula 2 12/14/24 21:05 12/14/24 19:46 Nasal Cannula 2 12/14/24 17:49 12/14/24 15:22 Room Air 12/14/24 12:10 12/14/24 11:52 Room Air Laboratory Results 12/14/24 05:20 12/14/24 14:05 Abnormal Lab Results 12/14/24 12/14/24 05:20 14:05 WBC 23.58 H RBC 3.11 L Hgb 8.4 L Hct 25.3 L MCV 81.4 MCH 27.0 MCHC 33.2 RDW Std Deviation 44.5 RDW Coeff of Rosey 15.1 H Plt Count 480 H MPV 9.2 L Immature Gran % (Auto) 0.8 Neut % (Auto) 96.5 Lymph % (Auto) 1.7 [place] % (Auto) 0.7 Eos % (Auto) 0.1 Baso % (Auto) 0.2 Neut # (Auto) 22.75 H Lymph # (Auto) 0.41 L [place] # (Auto) 0.16 Eos # (Auto) 0.03 Baso # (Auto) 0.04 Immature Gran # (Auto) 0.19 Polychromasia 1+ Hypochromasia Present Basophilic Stippling 1+ Sodium 137 136 Potassium 2.0 L* 3.4 L D Chloride 94 L 98 Carbon Dioxide 38 H 35 H Anion Gap 5 3 BUN 12 13 Creatinine 0.94 0.98 Est Cr Clr Drug Dosing 48.9 46.9 eGFR 68.18 64.86 BUN/Creatinine Ratio 12.8 13.3 Glucose 78 101 H Calcium 11.5 H 10.8 H Magnesium 1.2 L 1.8 Diagnostic Findings Chest X-Ray 12/13/24 14:02 XR chest 1V portable CLINICAL HISTORY: Sepsis COMPARISON STUDY: None FINDINGS: There is complete opacification of the left hemithorax with shift of the heart and mediastinum to the left. There is mild compensatory hyper inflation of the right lung. There is a small area of faint patchy opacity lateral right mid lung. No other consolidation or pleural effusion. No pneumothorax. IMPRESSION: 1. Findings suggestive of prior left pneumonectomy. If the patient does not have history of prior left pneumonectomy, follow-up chest CT would be suggested. 2. Possible early pneumonia right midlung. ACT 112: Negative or not required by law. Electronically signed by: Cedric Conway M.D. 12/13/2024 2:28 PM Abdomen/Pelvis CT 12/13/24 15:[address] WITHOUT CONTRAST HISTORY: Acute onset abdominal pain with weight loss Cancer, weight loss TECHNIQUE: Multiaxial CT images of the abdomen and pelvis were performed without contrast. A dose lowering technique was utilized adhering to the principles of ALARA. COMPARISON STUDY: Chest CT of same day FINDINGS: Chest CT dictated separately. Small left pleural effusion. Partially imaged collapse/consolidation of the left lower lobe with left hemithorax volume loss. Emphysema with right basilar subpleural fibrosis. No pneumatosis or pneumoperitoneum. The unenhanced spleen, mildly atrophic pancreas and right adrenal gland are unremarkable. Nodular thickening of the left adrenal gland may represent hyperplasia versus underlying indeterminate adrenal lesion. Unremarkable gallbladder. Liver is within normal limits. 4 mm nonobstructing calculus of the interpolar right kidney. Punctate nonobstructing calculus of the inferior pole left kidney. 5 mm calculus within the proximal left ureter just distal to the ureteropelvic junction is noted without significant obstructive uropathy. Urinary bladder wall thickening with partial distention. Unremarkable uterus and adnexa. Atherosclerosis of the aorta without aneurysm. No lymphadenopathy. No bowel obstruction or bowel wall thickening identified. Colonic diverticulosis without acute diverticulitis. No CT evidence of acute appendicitis. Unremarkable soft tissues. ORIF changes of the left hemipelvis. No destructive bone lesion. IMPRESSION: 1. 5 mm proximal left ureteral calculus is present without significant obstructive uropathy. 2. Nonobstructing bilateral nephrolithiasis. 3. No bowel obstruction or bowel wall thickening. 4. Colonic diverticulosis. 5. Please refer to the same day chest CT for discussion of the intrathoracic findings. ACT 112: Negative or not required by law. The above report was generated using voice recognition software. It may contain grammatical, syntax or spelling errors. Electronically signed by: Venkata Torres M.D. 12/13/2024 3:[address] 12/13/24 15:22 CT SCAN OF THE CHEST WITHOUT IV CONTRAST CLINICAL HISTORY: Sepsis. COMPARISON STUDY: Chest x-ray dated 12/13/2024. TECHNIQUE: CT scan of the thorax was performed from the thoracic inlet to the upper abdomen. Images are reviewed in the axial, sagittal, and coronal planes. IV contrast was not administered for this examination as per the referring clinician. A dose lowering technique was utilized adhering to the principles of ALARA. CT DOSE: 653.07 mGy.cm FINDINGS: Thyroid: Imaged portions of the thyroid gland are normal in size and attenuation. Thoracic aorta: The thoracic aorta is normal in caliber and demonstrates standard 3-vessel arch anatomy. Heart: The heart is normal in size and without pericardial effusion. Lungs and pleural spaces: Moderate to advanced emphysematous change is noted in the right lung. There is complete atelectasis of the left lung with compensatory hyperinflation of the right lung and leftward shift of the mediastinum. There is a [id number] amount of pleural fluid on the left. No pleural fluid is seen in the right. There is right basilar scarring/atelectasis. The trachea is clear. Debris fills the left mainstem bronchus and the left-sided bronchi which are completely opacified. The right mainstem bronchus is clear. There are scattered calcified granulomas. Mediastinum: A mildly enlarged prevascular lymph node measures 10 mm in short axis. No additional enlarged mediastinal lymph nodes are clearly seen. Naya: Not well assessed without IV contrast. Axillae: There is no axillary lymphadenopathy. Upper abdomen: Partially visualized upper abdominal viscera is within normal limits. Skeletal structures: The skeletal structures are osteopenic. No lytic or blastic bony lesions are seen. IMPRESSION: 1. Emphysema. 2. There is complete atelectasis of the left lung with compensatory hyperinflation of the right lung and leftward shift of the mediastinum. 3. Tumor or pneumonia within the collapsed left lung would be impossible to exclude. Pulmonology evaluation is advised. 4 Debris/material occludes the left mainstem bronchus and the left-sided airways. This could be related to aspiration. Again, an underlying mass lesion is not excluded. 5. There is a small to moderate amount of pleural fluid on the left. 6. There is a mildly enlarged prevascular lymph node. No additional enlarged mediastinal lymph nodes are clearly seen. 7. The right lung appears clear. 8. Additional findings as above. ACT 112: Negative or not required by law. Electronically signed by: Krishan Temple M.D. 12/13/2024 3:52 PM PG Care Time/CCT Total # of Minutes Spent Total Time Spent with Patient: Total time spent is greater than 50% in coordination of care (as documented) at patient's floor/unit and/or counseling patient: Coding Level of Care Code 00228 IN/OBS CONSULT LVL 2,35M Diagnoses Collapsed lung J98.19 Lung cancer C34.90 Unintentional weight loss R63.4
[2024-12-15 07:23] LABS: Anion Gap 3.0 (3-11); Blood Urea Nitrogen 17.0 mg/dl (6-23); Calcium 9.7 mg/dl (8.6-10.3); Carbon Dioxide 32.0 mmol/L (21-32); Chloride 103.0 mmol/L (98-107); Creatinine Clr Calc Pharmacy 46.5 ml/min; Glucose 87.0 mg/dl (70-99(Fasting)); Magnesium 1.6 mg/dl (1.7-2.4); Potassium 3.7 mmol/L (3.5-5.1); Sodium 138.0 mmol/L (136-145)
[2024-12-15 07:59] VITALS: TEMP 98.2
[2024-12-15] MEDS: MAGNESIUM SULFATE / D5W 1 GM/100 ML BAG IV ONE (08:49)
[2024-12-15 11:48] VITALS: BP 109/68; O2SAT 97
--- NOTE | 2024-12-15 12:46 | Discharge Summary ---
"Discharge Summary Date of Service December 15, 2024 Principal Dx & Hospital Course #1 = Principal Diagnosis (1) Suspected lung cancer: (2) Collapsed lung: (3) Weakness: (4) Unintentional weight loss: (5) Hypercalcemia: Plan Promise 64F without significant medical history as she has not seen a provider in ~20 years who presented with progressive nausea, weight loss, and fevers. Initial workup concerning for lung mass. #Suspected lung cancer | Collapsed Left Lung - Seen on chest CT, with compensatory hyperinflation of the right lung and leftward shift of the mediastinum. Tumor or pneumonia in the collapsed lung would be impossible to exclude. Debris occludes the left mainstem bronchus. - Pulmonology consulted and recommended transfer to tertiary center for lesion debulking Discussion was had with [facility] interventional radiologist, Dr. Sevilla, who felt that Kirsten would not be a candidate for debulking because the collapsed lung is necrotic and likely has been down for greater than 2 months. He could perform a more extensive biopsy procedure to try protecting the right mainstem bronchus, however the purpose of this would be to get a tissue diagnosis for further immuno/chemo/radiation therapy. This information was relayed to Promise and her family, and she does not want to pursue these aggressive measures and would like to return home on hospice. - Fortunately she is having very minimal respiratory symptoms at this time - Hospice services set up on discharge #Weakness | Nausea | Unintentional Weight Loss - multifactorial, with possible underlying cancer, electrolyte abnormalities, and possible infection - CT A/P shows kidney stones (pt asymptomatic) and colonic diverticulosis - Blood cultures no growth at 24 hours - Zofran prn nausea #Hypercalcemia | Hypokalemia - likely the cause of her symptoms of nausea and poor oral intake - Hydrated with NSS + KCL, repleted with IV KCl and mag, Zometa x 1 - Electrolytes repleted on morning of discharge aside from mild hypomagnesemia with mag of 1.6. Repleted with 1 g mag IV x 1 on day of discharge Dispo: Discharged home with hospice services 12/15 DVT proh: lovenox Notes For Next Care Provider Patient has transition to hospice services on discharge for suspected lung cancer with collapsed left lung. Medication Changes From Visit Initial comfort care medications startedlorazepam, morphine, olanzapine, Zofran Hospice company will get patient set up with any other medications that are needed Admission HPI Per Admitting Provider Patient has been sick for 2 years, at first she thought this was long covid. Had subjective daily fevers - Would take ibuprofen. Not taking her temp at home, but just feels feverish and chills and just wanting to lay under a blanker. Taking ibupfrofen every 6-8 hours for the last two years. Symptoms do improve after taking this. Over the summer starting to loose weight and started getting stomach pains and nausea. Nausea has been getting progressively worse. Poor appetite - has not eaten anything solid in 3 days. Feels like she is gagging on things when she tried to eat. For about a week was eating soft foods/full liquids. Appetite changed abruptly in the last month. She thought she had colon cancer because of the nausea and her and her were focused on making her as comfortable as possible. Has two sons, spoke to her youngest son this morning and he encouraged her to come to the hospital. Hard stools for the last month - minimal stool output in the last few days. Doesnt feel like she has changes in her breathing. Does have worsening shortness of breathing with exertion - has been happening for a few months, but worse in the last few weeks. Former smoker - stopped with the last week because of how sicks she was. 40+ years 1 ppd no ETOH use ED Course: CTX 2g x1 Azithromycin NSS x1 L benadryl 50mg IV x1 Solumedrol 40mg IV x1 Discharge Exam General: No acute distress, nondiaphoretic. Cachectic. Appears older than current age. Skin: Warm, dry. Generalized pallor. No peripheral edema noted. Cardiac: Regular rate and rhythm without murmurs gallops or rubs. Pulm: No lung sounds on the left, clear to auscultation on the right. Normal respiratory effort. 97% on room air. Abdominal: Soft, nontender, nondistended. Bowel sounds present. Neuro: A&O x3. No focal neurological deficits. Discharge Plan Discharge Items Patient Disposition: Hospice - Home Reason For Visit: WEAKNESS, COLLAPSED LUNG Discharge Diagnosis: Lung masspresumed cancer Condition on Discharge: Fair Activity: As commented below Non-emergency contact: Primary Care Provider Call non-emergency contact if: you have any medication questions, your symptoms worsen, your pain is worsening and your temperature is above 101.5 Follow-up/Referrals: PCP,NO [Primary Care Provider] - Diet: Regular Addtl Attending Provider Instructions: Ms. Currie, You were hospitalized after having weakness and weight loss at home, you are found to have a mass in your lung that is presumed to be cancer. After further discussions with you, your family, and the specialist, you have opted for no further aggressive measures and to return to home with hospice services. This decision is most aligned with your goals of care and beliefs you have expressed throughout your admission. You will be returning home with hospice. At this point you do not need to follow up with any of your regular doctors or specialist, your hospice agency is now your main point of contact. They will be available 12/10 to answer any and all questions that you may have. They will be able to order medications and help with dosing when needed. They will also have supplemental oxygen at home for you. I have sent in the following medications if needed before hospice is able to send meds: - Zofran (ondansetron) - as needed for nausea - olanzapine (zyprexa) - as needed for nausea, second line if zofran not effective. - morphine - as needed for pain or air hunger - Ativan (lorazepam) - as needed for anxiety/agitation or restlessness. Can also be used third line for nausea Enjoy this time with your family. If you need anything please ask your hospice agency! Pending Studies at Discharge: Yes (blood cultures ) Stand-Alone Forms: My [facility] Medications and DC Order Prescriptions: New lorazepam 2 mg/mL concentrate 0.5 mg PO Q4H PRN (Reason: anxiety or agitation) Qty: 30 0RF morphine 20 mg/5 mL (4 mg/mL) solution 5 mg PO Q4H PRN (Reason: pain) Qty: 100 0RF ondansetron 4 mg tablet,disintegrating 4 mg PO Q6H PRN (Reason: nausea and vomiting) Qty: 14 0RF olanzapine 5 mg tablet,disintegrating 5 mg PO DAILY PRN (Reason: nausea) Qty: 7 0RF Rx Instructions: second line Continued ibuprofen 200 mg Tablet 400 mg PO Q6H PRN (Reason: Pain) Discharge Orders: Discharge Order (Routine); Ordered 12/15/24 Ordered By: Opal Domingo Admission Data Admit Date/Time: 12/13/24 17:25 Attending Provider: Inna Goldman Admit Provider: Opal Amaro Primary Care Provider: PCP,NO Other Providers: Mor Chaudhari; Opal Amaro; [facility] Other Interventions: Discharge Summary Assessment (RN) Last Done: 12/15/24 13:00 Hospital Stay Data Consultations 12/13/24 16:35 Consult Pulmonology Stat 12/13/24 16:41 ED Decision to Admit Stat Diagnostic Imagining Performed Chest X-Ray 12/13/24 14:02 XR chest 1V portable CLINICAL HISTORY: Sepsis COMPARISON STUDY: None FINDINGS: There is complete opacification of the left hemithorax with shift of the heart and mediastinum to the left. There is mild compensatory hyper inflation of the right lung. There is a small area of faint patchy opacity lateral right mid lung. No other consolidation or pleural effusion. No pneumothorax. IMPRESSION: 1. Findings suggestive of prior left pneumonectomy. If the patient does not have history of prior left pneumonectomy, follow-up chest CT would be suggested. 2. Possible early pneumonia right midlung. ACT 112: Negative or not required by law. Electronically signed by: Cedric Conway M.D. 12/13/2024 2:28 PM Abdomen/Pelvis CT 12/13/24 15:[address] WITHOUT CONTRAST HISTORY: Acute onset abdominal pain with weight loss Cancer, weight loss TECHNIQUE: Multiaxial CT images of the abdomen and pelvis were performed without contrast. A dose lowering technique was utilized adhering to the principles of ALARA. COMPARISON STUDY: Chest CT of same day FINDINGS: Chest CT dictated separately. Small left pleural effusion. Partially imaged collapse/consolidation of the left lower lobe with left hemithorax volume loss. Emphysema with right basilar subpleural fibrosis. No pneumatosis or pneumoperitoneum. The unenhanced spleen, mildly atrophic pancreas and right adrenal gland are unremarkable. Nodular thickening of the left adrenal gland may represent hyperplasia versus underlying indeterminate adrenal lesion. Unremarkable gallbladder. Liver is within normal limits. 4 mm nonobstructing calculus of the interpolar right kidney. Punctate nonobstructing calculus of the inferior pole left kidney. 5 mm calculus within the proximal left ureter just distal to the ureteropelvic junction is noted without significant obstructive uropathy. Urinary bladder wall thickening with partial distention. Unremarkable uterus and adnexa. Atherosclerosis of the aorta without aneurysm. No lymphadenopathy. No bowel obstruction or bowel wall thickening identified. Colonic diverticulosis without acute diverticulitis. No CT evidence of acute appendicitis. Unremarkable soft tissues. ORIF changes of the left hemipelvis. No destructive bone lesion. IMPRESSION: 1. 5 mm proximal left ureteral calculus is present without significant obstructive uropathy. 2. Nonobstructing bilateral nephrolithiasis. 3. No bowel obstruction or bowel wall thickening. 4. Colonic diverticulosis. 5. Please refer to the same day chest CT for discussion of the intrathoracic findings. ACT 112: Negative or not required by law. The above report was generated using voice recognition software. It may contain grammatical, syntax or spelling errors. Electronically signed by: Venkata Torres M.D. 12/13/2024 3:[address] 12/13/24 15:22 CT SCAN OF THE CHEST WITHOUT IV CONTRAST CLINICAL HISTORY: Sepsis. COMPARISON STUDY: Chest x-ray dated 12/13/2024. TECHNIQUE: CT scan of the thorax was performed from the thoracic inlet to the upper abdomen. Images are reviewed in the axial, sagittal, and coronal planes. IV contrast was not administered for this examination as per the referring clinician. A dose lowering technique was utilized adhering to the principles of ALARA. CT DOSE: 653.07 mGy.cm FINDINGS: Thyroid: Imaged portions of the thyroid gland are normal in size and attenuation. Thoracic aorta: The thoracic aorta is normal in caliber and demonstrates standard 3-vessel arch anatomy. Heart: The heart is normal in size and without pericardial effusion. Lungs and pleural spaces: Moderate to advanced emphysematous change is noted in the right lung. There is complete atelectasis of the left lung with compensatory hyperinflation of the right lung and leftward shift of the mediastinum. There is a [id number] amount of pleural fluid on the left. No pleural fluid is seen in the right. There is right basilar scarring/atelectasis. The trachea is clear. Debris fills the left mainstem bronchus and the left-sided bronchi which are completely opacified. The right mainstem bronchus is clear. There are scattered calcified granulomas. Mediastinum: A mildly enlarged prevascular lymph node measures 10 mm in short axis. No additional enlarged mediastinal lymph nodes are clearly seen. Naya: Not well assessed without IV contrast. Axillae: There is no axillary lymphadenopathy. Upper abdomen: Partially visualized upper abdominal viscera is within normal limits. Skeletal structures: The skeletal structures are osteopenic. No lytic or blastic bony lesions are seen. IMPRESSION: 1. Emphysema. 2. There is complete atelectasis of the left lung with compensatory hyperinflation of the right lung and leftward shift of the mediastinum. 3. Tumor or pneumonia within the collapsed left lung would be impossible to exclude. Pulmonology evaluation is advised. 4 Debris/material occludes the left mainstem bronchus and the left-sided airways. This could be related to aspiration. Again, an underlying mass lesion is not excluded. 5. There is a small to moderate amount of pleural fluid on the left. 6. There is a mildly enlarged prevascular lymph node. No additional enlarged mediastinal lymph nodes are clearly seen. 7. The right lung appears clear. 8. Additional findings as above. ACT 112: Negative or not required by law. Electronically signed by: Krishan Temple M.D. 12/13/2024 3:52 PM Pending Results Patient Have Any Pending Studies at Discharge: Yes (blood cultures ) Discharge Instructions Given to Patient (Per Discharging Provider) Ms. Currie, You were hospitalized after having weakness and weight loss at home, you are found to have a mass in your lung that is presumed to be cancer. After further discussions with you, your family, and the specialist, you have opted for no further aggressive measures and to return to home with hospice services. This decision is most aligned with your goals of care and beliefs you have expressed throughout your admission. You will be returning home with hospice. At this point you do not need to follow up with any of your regular doctors or specialist, your hospice agency is now your main point of contact. They will be available 12/10 to answer any and all questions that you may have. They will be able to order medications and help with dosing when needed. They will also have supplemental oxygen at home for you. I have sent in the following medications if needed before hospice is able to send meds: - Zofran (ondansetron) - as needed for nausea - olanzapine (zyprexa) - as needed for nausea, second line if zofran not effective. - morphine - as needed for pain or air hunger - Ativan (lorazepam) - as needed for anxiety/agitation or restlessness. Can also be used third line for nausea Enjoy this time with your family. If you need anything please ask your hospice agency! Supervising Physician Co-Signing Physician Notes DELMY Supervision Note: I did not personally see or examine the patient today, but I verified all jerome points of DELMY Domingo's assessment and plan with the following exceptions/additions: None Total Time Total Time Spent Total Time Spent (In Minutes): Greater than 30 minutes spent completing this discharge process including direct patient care, medication reconciliation, documentation, review of labs and images, and coordination of care. Coding Level of Care Code 71926 INP/OBS DISCH >30 MIN Diagnoses Suspected lung cancer R68.89 Collapsed lung J98.19 Weakness R53.1 Unintentional weight loss R63.4 Hypercalcemia E83.52"
[2024-12-15 13:01] VITALS: PULSE 87
--- NOTE | 2024-12-16 06:57 | Electrocardiogram Report ---
Test Reason : Blood Pressure : */* mmHG Vent. Rate : 87 BPM Atrial Rate : 87 BPM P-R Int : 134 ms QRS Dur : 92 ms QT Int : 366 ms P-R-T Axes : 89 -7 73 degrees QTcB Int : 440 ms Normal sinus rhythm Inferior infarct , age undetermined Anterior infarct , age undetermined Abnormal ECG When compared with ECG of 07-May-2020 13:54, Criteria for Inferior infarct are now Present Confirmed by Wilber Brewer ([id number]) on 12/16/2024 6:56:45 AM Referred By: REFERRED SELF Confirmed By: Wilber Brewer
== END 2024-12-15 13:42 | disposition hospice, home (50) | DRG 180 ==
LOC: ED 13:05 → SUATTDRO 17:25 → 2S 17:25